=== PATIENT | male | born 2000 | race Two or more races ===

== ENCOUNTER 2025-06-03 21:23 | Emergency (ER) | payer OTHER ==
[~2025-06-03] VITALS: Ht 182.9 cm; Wt 65.8 kg
[2025-06-03] MEDS ORDERED: TDAP [DIPH/PERTUSSIS/TET] 0.5 ML VIAL IM ONE (21:42)
[2025-06-03] MEDS ORDERED: BACI/NEOM/POLY B OINT PKT 1 UDPKT PACKET ONE (21:42)
[2025-06-03] MEDS ORDERED: OLANZAPINE 10 MG VIAL IM ONE (21:48)
[2025-06-03] MEDS ORDERED: LORAZEPAM INJ 2 MG/ML VIAL ONE (21:48)
[2025-06-03] MEDS: OLANZAPINE 10 MG VIAL IM ONE (22:02)
[2025-06-03] MEDS: LORAZEPAM INJ 2 MG/ML VIAL IM ONE (22:02)
[2025-06-03] MEDS: BACI/NEOM/POLY B OINT PKT 1 UDPKT PACKET TP ONE (22:04)
[2025-06-03] MEDS: TDAP [DIPH/PERTUSSIS/TET] 0.5 ML VIAL IM ONE (22:04)
[2025-06-03 22:54] LABS: PLATELET COUNT (AUTO) 273 K/uL (150-450); RED BLOOD CELL COUNT(AUTO) 4.31 MIL/uL (4.5-6.0); RED CELL DISTRIBUTION WIDTH 13.8 % (11.5-15.0); WHITE BLOOD COUNT (AUTO) 7.6 K/uL (4.3-11.0)
[2025-06-03 22:58] LABS: APPEARANCE,URINE CLEAR (CLEAR); BLOOD, URINE NEGATIVE Ery/uL (NEGATIVE); LEUKOCYTE ESTERASE ,URINE NEGATIVE (NEGATIVE); NITRITE, URINE NEGATIVE (NEGATIVE); UGLUCOSE NEGATIVE (NEGATIVE)
[2025-06-03 23:02] LABS: CALCIUM, SERUM 8.9 mg/dL (8.5-10.1); CREATININE 1.1 mg/dL (0.6-1.3); SODIUM SERUM 140 mmol/L (136-145); UREA NITROGEN, BLOOD 18 mg/dL (7-18)
[2025-06-03 23:08] LABS: ASPARTATE AMINOTRANSFERASE 82 U/L (15-37); TOTAL PROTEIN, SERUM 6.7 g/dL (6.4-8.2)
[2025-06-03 23:11] LABS: BARBITURATE, URINE NEGATIVE (NEGATIVE); BENZODIAZEPINE, URINE NEGATIVE (NEGATIVE); COCCAINE, URINE NEGATIVE (NEGATIVE); OPIATE, URINE NEGATIVE (NEGATIVE)
[2025-06-03 23:13] LABS: AMPHETAMINE, URINE POSITIVE (NEGATIVE); CANNABINOID, URINE POSITIVE (NEGATIVE)
[2025-06-03 23:13] LABS: ALCOHOL, BLOOD < 3 mg/dL (0-10)
[2025-06-03 23:31] LABS: ADD URINE CULTURE YES
[2025-06-03] MEDS ORDERED: POTASSIUM CHLORIDE 10 MEQ TABLET.SA ONE (23:43)
[2025-06-03] MEDS: POTASSIUM CHLORIDE 10 MEQ TABLET.SA PO ONE (23:46)
[2025-06-04] MEDS ORDERED: CEPH500C2 PO (01:40)
[2025-06-04 04:05] VITALS: BP 156/91; TEMP 98.2; O2SAT 98
[2025-06-04] MEDS ORDERED: SULF1TAB48 PO (12:21)
== END 2025-06-04 04:06 ==
LOC: ER 21:30
DX: S61.412A Laceration without foreign body of left hand, initial encounter (principal); Z79.899 Other long term (current) drug therapy; Z20.822 Contact with and (suspected) exposure to COVID-19; W26.0XXA Contact with knife, initial encounter; Y93.89 Activity, other specified; Y92.89 Other specified places as the place of occurrence of the external cause; Y99.8 Other external cause status
CPT/HCPCS: 12002; 36415; 71045; 72170; 80048; 80076; 80143; 80307; 80320; 81001; 85025; 87086; 87426; 90471; 90715; 96372; 99284; A6403; J2060; J3490; G0480

== ENCOUNTER 2025-06-04 12:04 | Emergency (ER) | payer OTHER ==
[~2025-06-04] VITALS: Ht 172.7 cm; Wt 80.7 kg
[~2025-06-04 12:04] MED LIST: CEPH500C2 PO
[2025-06-04] MEDS ORDERED: SULF1TAB48 PO (12:21)
[2025-06-04 13:29] VITALS: BP 125/87; TEMP 98.5; O2SAT 100
== END 2025-06-04 12:30 ==
LOC: ER 12:07
DX: L97.121 Non-pressure chronic ulcer of left thigh limited to breakdown of skin (principal); F17.200 Nicotine dependence, unspecified, uncomplicated; Z60.2 Problems related to living alone; Z79.899 Other long term (current) drug therapy; Z59.00 Homelessness unspecified
CPT/HCPCS: 99283; A6403